=== PATIENT | male | born 1995 | race Asian ===

== ENCOUNTER 2022-04-03 04:07 | Day surgery (SDC) | payer OTHER ==
[2022-03-31 12:24] VITALS: BMI 32.3
[2022-04-03] MEDS ORDERED: ROCURONIUM BROMIDE 50 MG/5 ML SYRINGE ONE (12:29)
[2022-04-03] MEDS ORDERED: MIDAZOLAM HCL 2 MG/2 ML SINGLE DOSE VIAL ONE (12:29)
[2022-04-03] MEDS ORDERED: PROPOFOL 40 ML ONE (12:29)
[2022-04-03] MEDS ORDERED: ceFAZolin SODIUM 1 GM VIAL ONE (12:44)
[2022-04-03] MEDS ORDERED: ceFAZolin SODIUM 1 GM VIAL IVPB ONE (12:44)
[2022-04-03] MEDS ORDERED: DEXAMETHASONE SOD PHOSPHATE 4 MG/1 ML VIAL ONE (12:44)
[2022-04-03] MEDS ORDERED: ONDANSETRON 4 MG/2 ML VIAL ONE (12:44)
[2022-04-03] MEDS ORDERED: ACETAMINOPHEN INJECTION 100 ML IVPB ONE (13:04)
[2022-04-03] MEDS ORDERED: ONDANSETRON 4 MG/2 ML VIAL IVPUSH PRN (13:10)
[2022-04-03] MEDS ORDERED: oxyCODONE HCL 5 MG TABLET PO PRN (13:10)
[2022-04-03] MEDS ORDERED: LACTATED RINGERS SOLUTION 1,000 ML IV SCH (13:15)
[2022-04-03] MEDS ORDERED: GLYCOPYRROLATE 0.2 MG/1 ML VIAL ONE ×2 (13:27)
[2022-04-03] MEDS ORDERED: NEOSTIGMINE METHYLSULFATE 0.5 MG/1 ML - 10 ML MDV ONE (13:27)
[2022-04-03 16:49] VITALS: RESP 16
[2022-04-03 17:33] VITALS: TEMP 97.7
[2022-04-03 17:35] VITALS: BP 133/86; PULSE 86
== END 2022-04-03 18:00 | disposition home or self-care (01) ==
LOC: JASU-SURG 04:07
PROVIDERS: ATTEND Otolaryngology
PROC: 0CTPXZZ Resection of Tonsils, External Approach (ICD-10-PCS; principal; 2022-04-03 12:00)
DX: G47.33 Obstructive sleep apnea (adult) (pediatric) (principal); J35.1 Hypertrophy of tonsils
CPT/HCPCS: 94760